=== PATIENT | female | born 1980 | race Caucasian/White ===

== ENCOUNTER 2018-12-12 18:12 | Emergency (ER) | payer MEDICAID ==
[~2018-12-12] VITALS: Ht 170.2 cm; Wt 69.1 kg
[2018-12-12] MEDS ORDERED: ondansetron/PF 4mg/2ml inj IV STA (18:20)
[2018-12-12] MEDS ORDERED: normal saline 1000ml 1,000 ML IVB ONE (18:20)
[2018-12-12] MEDS ORDERED: ondansetron 4mg rapidly disintigrating tab PO STA (18:25)
[2018-12-12 18:56] LABS: ALANINE AMINOTRANSFERASE 22 U/L (12-78); ALBUMIN/GLOBULIN RATIO 0.6 (1.1-1.5); ALKALINE PHOSPHATASE 103 IU/L (46-116); AMYLASE 26 U/L (25-115); ANION GAP 11 (8-16); ASPARTATE AMINO TRANSFERASE 13 U/L (10-37); BASOPHILS # (AUTO) 0.1 X10'3 (0-0.2); BASOPHILS % (AUTO) 0.4 % (0-1); BILIRUBIN,TOTAL 0.5 MG/DL (0.1-1.0); BLOOD UREA NITROGEN 13 MG/DL (7-18); BUN/CREATININE RATIO 13.4 (6.6-38.0); CALCIUM 9.1 MG/DL (8.5-10.1); CHLORIDE 96 MMOL/L (99-107); CREATININE 0.97 MG/DL (0.40-0.90); EOSINOPHILS # (AUTO) 0.1 X10'3 (0-0.9); EOSINOPHILS % (AUTO) 0.8 % (0-6); GLUCOSE 96 MG/DL (70-104); HEMATOCRIT 44.9 % (35.0-45.0); HEMOGLOBIN 15.1 g/dl (12.0-16.0); LIPASE 51 U/L (73-393); LYMPHOCYTES # (AUTO) 2.5 X10'3 (1.1-4.8); LYMPHOCYTES % (AUTO) 18.8 % (21-51); MEAN CORPUSCULAR HEMOGLOBIN 29.6 PG (27.0-31.0); MEAN CORPUSCULAR HGB CONC 33.6 g/dL (33.0-36.5); MEAN CORPUSCULAR VOLUME 88.2 FL (78-98); MEAN PLATELET VOLUME 7.4 FL (7.4-10.4); MONOCYTES # (AUTO) 1.4 X10'3 (0-0.9); MONOCYTES % (AUTO) 10.3 % (2-12); NEUTROPHILS # (AUTO) 9.3 X10'3 (1.8-7.7); NEUTROPHILS % (AUTO) 69.7 % (42-75); PLATELET COUNT 384 X10'3 (140-440); POTASSIUM 3.9 MMOL/L (3.5-5.1); RED BLOOD COUNT 5.09 X10'6 (4.20-5.60); RED CELL DISTRIBUTION WIDTH 12.7 % (11.5-14.5); SODIUM 132 MMOL/L (135-145); TOTAL PROTEIN 7.7 G/DL (6.4-8.2); WHITE BLOOD COUNT 13.3 X10'3 (4.5-11.0); eGFR 64 ML/MIN
[2018-12-12 19:59] LABS: URINE HCG NEGATIVE (NEG)
[2018-12-12 20:00] LABS: CLARITY,URINE SLIGHTLY CLOUDY (Clear); COLOR,URINE YELLOW (Yellow); GLUCOSE, URINE NEGATIVE (Neg); KETONES,URINE >=80 mg/dl (Neg); LEUKOCYTE ESTERASE ,URINE NEGATIVE (Neg); NITRITES, URINE NEGATIVE (Neg); OCCULT BLOOD,URINE NEGATIVE (Neg); PROTEIN,URINE TRACE mg/dl (Neg)
[2018-12-12 20:07] LABS: UA COLLECTION TYPE CLN CATCH MIDSTREAM
[2018-12-12 20:19] LABS: BACTERIA,URINE 4+ /HPF (Neg); SQUAMOUS EPITHELIAL CELL,UR MANY /LPF (FEW)
[2018-12-12 20:20] LABS: RBC,URINE 0-2 /HPF (0-2); WBC,URINE 0-4 /HPF (0-4)
[2018-12-12] MEDS ORDERED: pantoprazole 40 MG vial IV ONE (21:05)
[2018-12-12] MEDS ORDERED: normal saline 1000ML IV soln IVB ONE (21:05)
[2018-12-12] MEDS ORDERED: proCHLORperazine 10 MG/2 ml inj IV ONE (21:05)
[2018-12-12] MEDS ORDERED: ESOMEPRAZOLE 40 MG VIAL IV ONE (21:10)
[2018-12-12] MEDS ORDERED: dextrose 5%-normal saline 1,000 ML IV ONE (21:20)
[2018-12-12 21:50] LABS: MAGNESIUM 1.7 MG/DL (1.5-2.4)
[2018-12-12] MEDS ORDERED: PHE25R PR (21:59)
[2018-12-12 22:29] VITALS: BP 133/93
--- NOTE | 2018-12-12 22:29 | NUR ---
Patient passed PO challenge successfully. She reports resolution of her symptoms.
--- NOTE | 2018-12-12 22:49 | NUR ---
Patient appears to have eloped with her IV. Security notified who is checking video surveillance. [employer] will be contacted regarding the issue.
--- NOTE | 2018-12-12 22:53 | NUR ---
Patient was found to be in the parking lot at the bus stop waiting for a ride to pick her up. She had placed a long sleeve shirt over her IV. She states she was not trying to leave but would not come in until she was told the police would be contacted if she didn't return for IV removal.
== END 2018-12-12 22:59 | disposition home or self-care (01) ==
LOC: ER 18:12
DX: N83.202 Unspecified ovarian cyst, left side (principal); R11.2 Nausea with vomiting, unspecified
CPT/HCPCS: 36415; 74176; 80053; 81001; 81025; 82150; 83690; 83735; 85025; 85610; 96361; 96374; 96375; 99284; J0780; J2405; J7030; J7042